=== PATIENT | female | born 1980 | race Two or more races ===

== ENCOUNTER 2023-03-24 00:51 | Emergency (ER) | payer BC ==
[2023-03-24 01:02] VITALS: BP 120/82; PULSE 102; RESP 18; TEMP 98.1; BMI 24.0
[2023-03-24 01:45] LABS: HCG,QUALITATIVE URINE Negative; PH,URINE 6.5 (5.0-8.0); URINE APPEARANCE CLEAR; URINE BILIRUBIN NEGATIVE (NEGATIVE); URINE COLOR DK YELLOW; URINE GLUCOSE (UA) NEGATIVE (NEGATIVE); URINE KETONE NEGATIVE (NEGATIVE); URINE LEUK ESTERASE 2+ (NEGATIVE); URINE NITRITE POSITIVE (NEGATIVE); URINE PROTEIN 1+ (NEGATIVE)
[2023-03-24] MEDS ORDERED: CEPHALEXIN MONOHYDRATE 500 MG CAPSULE (UD) ONE (02:14)
[2023-03-24] MEDS ORDERED: ACETAMINOPHEN 325 MG TABLET (FP) ONE (02:15)
[2023-03-24] MEDS ORDERED: PHENAZOPYRIDINE HCL 100 MG TABLET (FP) ONE (02:15)
[2023-03-24 02:43] LABS: BASO % 0.5 % (0-2.0); EOS % 0.6 % (0-4.5); HEMATOCRIT 33.4 % (32.4-45.2); HEMOGLOBIN 10.7 GM/dL (10.7-15.3); LYMPH % 10.2 % (8-40); MCH 23.9 pg (25.7-33.7); MCHC 32.1 g/dl (32.0-36.0); MEAN CELL VOLUME 74.4 fl (80-96); MEAN PLT VOLUME 7.8 fl (7.5-11.1); MONO % 6.1 % (3.8-10.2); NEUT % 82.6 % (42.8-82.8); PLATELET COUNT 272 10^3/uL (134-434); RDW 17.5 % (11.6-15.6); WHITE BLOOD COUNT 11.6 K/mm3 (4.0-10.0)
[2023-03-24 03:03] LABS: POTASSIUM 3.9 mmol/L (3.5-5.1)
[2023-03-24 03:05] LABS: ALBUMIN 3.4 g/dl (3.4-5.0); CALCIUM 8.8 mg/dL (8.5-10.1)
[2023-03-24 03:06] LABS: BLOOD UREA NITROGEN 15.8 mg/dL (7-18)
[2023-03-24 03:08] LABS: CREATININE 0.8 mg/dL (0.55-1.3)
[2023-03-24 03:10] LABS: BILIRUBIN,TOTAL 0.3 mg/dL (0.2-1); TOT PROT 6.8 g/dl (6.4-8.2)
[2023-03-24 03:56] LABS: EPI CELLS 12.1 /uL (0-25.1); HYALINE CASTS 0.29 /uL (0-3.1); URINE BACTERIA 7.5 /uL (0-1359); URINE RBC 19.3 /uL (0-23.9); URINE WBC 306.2 /uL (0-25.8)
== END 2023-03-24 05:14 | disposition home or self-care (01) ==
LOC: JER 00:51
DX: R10.30 Lower abdominal pain, unspecified (principal); N39.0 Urinary tract infection, site not specified
CPT/HCPCS: 36415; 74176-TC; 80053; 81003; 84703; 85025; 87086; 99284-25